=== PATIENT | female | born 1950 | race Caucasian/White ===

== ENCOUNTER 2016-09-16 08:43 | Emergency (ER) | payer OTHER ==
[~2016-09-16] VITALS: Wt 81.0 kg
[~2016-09-16 08:43] MED LIST: BUPR-34 PO; DEXT5TAB17 PO; DULO30CA45; LAMO100T83 PO; ONDA4TAB35 PO; ZOLP5TAB PO
--- NOTE | 2016-09-16 10:04 | ERD ---
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 This occurred this morning, she states that she was sleepy this morning and actually turned on her right hand was in it, states that she has lacerations on her second and third digit over the nail area. She denies weakness, paresthesias. Her last tetanus shot was 2 years ago. ROS All systems reviewed and are negative except as per history of present illness. Medications Home Meds Active Scripts Ondansetron Hcl* (Zofran* ODT) 4 mg -ODT Tab.disper, 4 MG PO Q6 Y for NAUSEA AND /OR VOMITING, #10 TAB Prov:RYAN TRACY MD 04/08/15 Reported Medications Amphet Uwj-Ggxmny-U-Amphet (Adderall) 5 Mg Tablet, PO DAILY, TAB 04/08/15 Lamotrigine* (Lamictal*) 100 Mg Tablet, 100 MG PO DAILY, TAB 04/08/15 Zolpidem Tartrate* (Ambien*) 5 Mg Tablet, 5 MG PO HS Y for INSOMNIA, TAB 04/08/15 Bupropion Hcl* (Wellbutrin SR*) 150 Mg Tablet.sa, 150 MG PO DAILY, TAB.SA 04/08/15 Duloxetine Hcl* (Cymbalta*) 30 Mg Capsule.dr, 60 MG DAILY 02/27/11 Allergies Allergies: Coded Allergies: aspirin (Verified Allergy, Unknown, 04/08/15) oxycodone (Verified Allergy, Unknown, 04/08/15) prochlorperazine (Verified Allergy, Unknown, 04/08/15) PMhx/Soc History of Surgery: Yes (TONSILS, L KNEE, APENDECTOMY) Anesthesia Reaction: No Hx Neurological Disorder: No Hx Respiratory Disorders: No Hx Cardiac Disorders: No Hx Psychiatric Problems: Yes Hx Miscellaneous Medical Probl: Yes (colitis ) Hx Alcohol Use: Yes Hx Substance Use: No Hx Tobacco Use: No Physical Exam Vitals Vital Signs Date Time Temp Pulse Resp B/P Pulse Ox O2 Delivery O2 Flow Rate FiO2 09/16/16 08:46 98.0 78 18 117/87 99 Physical Exam General: Well-developed, well-nourished. The patient appears in no acute distress. HEENT: Head is normocephalic, atraumatic. No scleral icterus. Neck: Supple. Nontender. Lungs: Clear to auscultation. Normal air movement. Heart: Regular rate and rhythm. S1 and S2 are normal. No murmurs, gallops, or rubs. Abdomen: Nondistended. Extremities: Full range of motion at DIP, PIP and MCP joints of the right second and third digits. Capillary refill less than 2 seconds. Neurologic: Alert and oriented 3. No focal deficits. Normal speech and gait. Skin: Superficial lacerations at the nailbed, dorsal aspect just above the nailbed on second and third digit have small lacerations all approximately 1 cm. There is no active bleeding. Results 24 hrs PROCEDURE: XR Hand. CLINICAL INDICATION: Right hand pain following injury. TECHNIQUE: Three views of the right hand were obtained. COMPARISON: No prior studies are available for comparison. FINDINGS: The osseous structures demonstrate normal alignment and mineralization. No acute fracture or dislocation is seen. The joint spaces are well preserved. No significant soft tissue abnormalities are appreciated. IMPRESSION: 1. Unremarkable right hand x-ray series. 2. No acute fracture or dislocation is seen. RPTAT: HH .Margo Walton MD, MD Date Time Electronically viewed and signed by .Margo Walton MD, MD on 09/16/2016 11 :27 Procedures/MDM ED course: Patient had wound care done, laceration was irrigated copiously with normal saline, and clean dressing was applied. MDM: 62-year-old female comes in with superficial lacerations at the nail and finger on the right second and third digits. X-rays of the hand are unremarkable. This is a superficial injury, no underlying fracture, tendon injury. Departure Diagnosis: Primary Impression: Laceration Condition: ALICE Lr PA-C Sep 16, 2016 10:04
--- NOTE | 2016-09-16 11:27 | RADRPT ---
PROCEDURE: XR Hand. CLINICAL INDICATION: Right hand pain following injury. TECHNIQUE: Three views of the right hand were obtained. COMPARISON: No prior studies are available for comparison. FINDINGS: The osseous structures demonstrate normal alignment and mineralization. No acute fracture or disloc ation is seen. The joint spaces are well preserved. No significant soft tissue abnormalities are a ppreciated. IMPRESSION: 1. Unremarkable right hand x-ray series. 2. No acute fracture or dislocation is seen. RPTAT: HH .Margo Walton MD, MD Date Time Electronically viewed and signed by .Margo Walton MD, on 09/16/2016 11:27 .G/
== END 2016-09-16 11:38 | disposition home or self-care (01) ==
LOC: FTE 08:43
DX: S61.210A Laceration without foreign body of right index finger without damage to nail, initial encounter (principal); S61.212A Laceration without foreign body of right middle finger without damage to nail, initial encounter; Y28.8XXA Contact with other sharp object, undetermined intent, initial encounter; Y92.9 Unspecified place or not applicable

== ENCOUNTER 2016-11-29 05:53 | Inpatient (IN) | payer OTHER ==
--- NOTE | 2016-11-23 10:04 | PREOPHP ---
DATE OF ADMISSION: 11/29/2016 Thank you very much for allowing me to evaluate the above patient, a 66-year-old female who is to [facility] on 11/29/2016. HISTORICAL EVENTS: As you well know, this patient has had progressive pain involving her right ankl e related to recurrent injuries. Because of the latter, she has elected to proceed with your recomm ended surgical intervention. Today, she denies cough, wheezing, shortness of breath, substernal florina st pain, radiating neck, arm or jaw discomfort. She denies nausea, vomiting, abdominal pain, unusua l constipation or diarrhea and denies symptoms of gastrointestinal bleeding with review of system s being unrevealing. MEDICATIONS: Include: 1. Cymbalta 60 mg b.i.d. 2. Wellbutrin 300 mg per day. 3. Lamictal 200 mg daily. 4. Vitamin D3 1000 units per day. PAST MEDICAL HISTORY: 1. History of kidney stones, remote. 2. Appendectomy 3. Tonsillectomy. 4. Left knee replacement in 2015. 5. History of collagenous colitis, having been on budesonide in the past, now quiescent. 6. Embraces a vegan diet. 7. No history of hypertension, diabetes, strokes, phlebitis or peptic ulcer disease. FAMILY HISTORY: Positive for stroke and diabetes. SOCIAL HISTORY: She is single. She has no children. Socially drinks alcohol. 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 PHYSICAL EXAMINATION: GENERAL: [place] female in no acute distress. VITAL SIGNS: BP 122/72, respirations were 18. She was afebrile. EYES: Extraocular muscles were full. NOSE, MOUTH, AND THROAT: Normal. NECK: Supple. There was no jugular venous distention, thyroid enlargement or adenopathy. Carotids 2+, no bruits. LUNGS: Clear. HEART: Rhythm regular. ABDOMEN: Nontender. Liver and spleen were not palpable. No masses or tenderness were noted. EXTREMITIES: No edema. Calves nontender. Pulses 2+. NEUROLOGIC: No lateralizing motor weakness. IMPRESSION: Pending labs, I perceive no problems with your planned surgical intervention. Dictated By: TANK OH/DIPIKA Conf#: [id number] DID#: [id number]
[~2016-11-29] VITALS: Ht 160 cm; Wt 83.3 kg
[2016-11-29] VITALS (33 sets, daily range): BP systolic 96–148; BP diastolic 58–89; PULSE 70–100; RESP 15–25; Ht 160 cm; Wt 83.3 kg
--- NOTE | 2016-11-29 06:46 | HPN ---
Date/Time of Note Date/Time of Note DATE: 11/29/16 TIME: 06:46 Interval H&P Admission Note Pt. seen H&P reviewed: No system changes MICHELLE MARTIN MD Nov 29, 2016 06:46
[2016-11-29] MEDS ORDERED: PROPOFOL 200 MG INJ ONE (07:00)
[2016-11-29] MEDS ORDERED: ROCURONIUM 50 MG INJ ONE (07:00)
[2016-11-29] MEDS ORDERED: NEOSTIGMINE 3 MG/3 ML SYRINGE ONE (07:00)
[2016-11-29] MEDS ORDERED: CEFAZOLIN 1 GM INJ IV SCH (07:00)
[2016-11-29] MEDS ORDERED: morphine 10 MG INJ IV PRN (07:00)
[2016-11-29] MEDS ORDERED: CEFAZOLIN 1 GM INJ ONE (07:00)
[2016-11-29] MEDS ORDERED: OXYCODONE/ACETAMINOPHEN (5/325) TAB PO PRN (07:00)
[2016-11-29] MEDS ORDERED: LIDOCAINE 2% (SDV) 5 ML INJ ONE (07:00)
[2016-11-29] MEDS ORDERED: GLYCOPYRROLATE 0.4 MG INJ ONE (07:00)
[2016-11-29] MEDS ORDERED: HYDROmorphONE 0.2 MG/ML PCA IV SCH (07:00)
[2016-11-29] MEDS ORDERED: SUCCINYLCHOLINE CHLORIDE 100 MG/5 ML SYG IV ONE (07:00)
[2016-11-29] MEDS ORDERED: MIDAZOLAM 1 MG/ML 2 ML INJ ONE (07:03)
[2016-11-29] MEDS ORDERED: ROPIVACAINE 0.5 % 30 ML VIAL ONE (07:03)
[2016-11-29] MEDS ORDERED: POLYMYXIN/BACITRACIN 1L IRRIG ONE (07:24)
[2016-11-29] MEDS ORDERED: FENTAnyl 50 MCG/ML VIAL ONE (07:26)
[2016-11-29] MEDS ORDERED: DIPHENHYDRAMINE 50 MG INJ IV PRN (08:30)
[2016-11-29] MEDS ORDERED: HYDROmorphONE (0.2 MG/ML) 10ML SYG IV PRN ×3 (08:30)
[2016-11-29] MEDS ORDERED: MEPERIDINE 25 MG INJ IV PRN (08:30)
[2016-11-29] MEDS ORDERED: FENTAnyl 50 MCG/ML VIAL IV PRN ×2 (08:30)
[2016-11-29] MEDS ORDERED: ONDANSETRON 4 MG INJ IV PRN (08:30)
[2016-11-29] MEDS ORDERED: hydrALAzine 20 MG INJ ONE (10:28)
[2016-11-29] MEDS ORDERED: BACITRACIN/POLYMYXIN 28.35 GM OINT TOP ONE (11:31)
[2016-11-29] MEDS ORDERED: HYDROmorphONE 0.2 MG/ML PCA ONE (12:17)
[2016-11-29] MEDS: HYDROmorphONE 0.2 MG/ML PCA IV SCH ×2 (12:26→20:34)
--- NOTE | 2016-11-29 13:57 | OPR ---
Date/Time of Note Date/Time of Note DATE: 11/29/16 TIME: 13:55 Operative Report Preoperative Diagnosis Right ankle arthritis Postoperative Diagnosis Right ankle arthritis Operation/Procedure Performed Right Ankle Arthroplasty Surgeon: MICHELLE MARTIN MD insurance claims assistant: HEIDI MELENDEZ Anesthesia: general, other (Popliteal) Estimated Blood Loss: 10 - 50 ml's Grafts/Implants Prakash medial Infinity Total Ankle Replacement Size 2 Tibia Size 1 Talus Size 8 mm Poly Complications: None MICHELLE MARTIN MD Nov 29, 2016 13:56
[2016-11-29] MEDS: CEFAZOLIN 1 GM/50 ML (PMX) 50 ML IVPB SCH ×2 (14:35→21:54)
--- NOTE | 2016-11-29 14:43 | RADRPT ---
PROCEDURE: Intraoperative fluoroscopy CLINICAL INDICATION: Right ankle arthroplasty TECHNIQUE: 179 seconds of fluoroscopy time was utilized. 20 Images are submitted for interpretatio n. COMPARISON: Plain films from the same day FINDINGS: Successful placement of a right ankle arthroplasty was performed. 179 seconds of fluoroscopy time u tilized. Anatomic alignment. IMPRESSION: Successful right ankle arthroplasty placement. 179 seconds of fluoroscopy time used. Anatomic alig nment. RPTAT: EE .Danielle Chaves MD, MD Date Time Electronically viewed and signed by .Danielle Chaves MD, on 11/29/2016 14:43 .F/
--- NOTE | 2016-11-29 15:48 | RADRPT ---
PROCEDURE: XR Ankle. CLINICAL INDICATION: Right ankle postoperative evaluation TECHNIQUE: 3 views of the right ankle were performed. COMPARISON: None. FINDINGS: Overlying cast obscures fine bony detail. There is a tibiotalar arthroplasty in anatomic alignment. Lucencies in the distal tibial metaphysis likely from previous hardware. Remaining joint spaces are grossly preserved. There is diffuse soft tissue swelling. IMPRESSION: 1. Tibiotalar arthroplasty in anatomic alignment. 2. Diffuse soft tissue swelling. RPTAT: UU .Sheldon Rose MD, MD Date Time Electronically viewed and signed by .Sheldon Rose MD, MD on 11/29/2016 15:48 .K/
--- NOTE | 2016-11-29 16:17 | CONS ---
DATE OF ADMISSION: 11/29/2016 DATE OF CONSULTATION: 11/29/2016 TYPE OF CONSULTATION: Medical. Thank you, Dr. Parks, for asking me to participate in the medical management of this patient. REASON FOR CONSULTATION: To manage the patient's depression, collagenous colitis. HISTORY OF PRESENT ILLNESS: This 66-year-old female is now in the postanesthesia recovery room afte r undergoing a right total ankle replacement by Dr. Gorge Parks. The patient is lethargic but arous es easily to verbal stimuli and answers questions appropriately. The patient denies any chest pain or shortness of breath. The patient is receiving a BENZENE OPERATOR medication for pain. PAST MEDICAL HISTORY: Remarkable for kidney stones, collagenous colitis which has been quiescent, d epression for which she takes medication. PAST SURGICAL HISTORY: Appendectomy, tonsillectomy, left knee replacement in 2016. CURRENT MEDICATIONS: Include the following 1. Cymbalta 60 mg twice a day. 2. Wellbutrin 300 mg a day. 3. Lamictal 200 mg at night. 4. Vitamin D3 1000 units a day. FAMILY HISTORY: Positive for stroke and diabetes. SOCIAL HISTORY: The patient is single. She has no children and socially drinks alcohol. 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 PHYSICAL EXAMINATION: GENERAL: At this time reveals a well-developed female in no apparent distress. VITAL SIGNS: Pulse of 92, blood pressure 121/66, O2 saturation 99% on 2 liter nasal cannula. HEENT: HEAD: Normocephalic. EYES: Extraocular muscles intact. NOSE AND MOUTH: Normal. NECK: Supple. No neck vein distention. LUNGS: Clear to auscultation. HEART: Regular rhythm. No murmurs, gallops, or rubs. ABDOMEN: Soft, nontender. EXTREMITIES: No peripheral edema. IMPRESSION: This patient is now in the recovery room after undergoing a right total ankle replaceme nt. She is doing well. Her vital signs are stable. I will manage the patient's depression and col lagenous colitis. PLAN 1. Resume routine medications. 2. Check labs in the morning. 3. Postop ankle replacement protocol. 4. I will follow the patient along with you medically. Dictated By: LIZA LORENZO MD, ND/DIPIKA Conf#: [id number] [facility]#: [id number]
[2016-11-29] MEDS: LAMOTRIGINE 100 MG TAB PO SCH (21:54)
[2016-11-30 00:35] VITALS: BP 111/63; PULSE 92; RESP 19
[2016-11-30] MEDS ORDERED: VITAMIN A & D 5 GM OINT PACKET TOP ONE (03:02)
[2016-11-30] MEDS: HYDROmorphONE 0.2 MG/ML PCA IV SCH (03:28)
[2016-11-30 04:38] VITALS: BP 109/67; PULSE 93; RESP 18
[2016-11-30 06:04] LABS: ABNORMAL IP MESSAGE 1; ADD SCAN DIFF NO; BASOPHILS % 0.5 % (0.0-2.0); EOSINOPHILS # 0.1 10^3/ul (0.0-0.5); EOSINOPHILS % 1.7 % (0.0-7.0); HEMOGLOBIN 12.7 g/dl (12.0-16.0); LYMPHOCYTES # 1.3 10^3/ul (0.8-2.9); LYMPHOCYTES % 16.9 % (15.0-51.0); MEAN CORPUSCULAR HEMOGLOBIN 31.8 pg (29.0-33.0); MEAN CORPUSCULAR HGB CONC 31.8 g/dl (32.0-37.0); MEAN CORPUSCULAR VOLUME 100.3 fl (82.0-101.0); MONOCYTE # 1.2 10^3/ul (0.3-0.9); NEUTROPHILS % 64.4 % (39.0-77.0); PLATELET COUNT 86 10^3/UL (140-415); RED BLOOD COUNT 3.99 10^6/ul (4.20-5.40); RED CELL DISTRIBUTION WIDTH 13.1 % (11.5-14.5); WHITE BLOOD COUNT 7.8 10^3/ul (4.8-10.8)
[2016-11-30 06:27] LABS: ALBUMIN 4.3 g/dl (3.3-4.9); ALBUMIN/GLOBULIN RATIO 2.26; BILIRUBIN,INDIRECT 0.9 mg/dl (0-1.1); BILIRUBIN,TOTAL 0.9 mg/dl (0.2-1.3); CALCIUM 9.2 mg/dl (8.4-10.2); CREATININE 0.73 mg/dl (0.44-1.00); POTASSIUM 3.8 mmol/L (3.5-5.1); TOTAL PROTEIN 6.2 g/dl (6.1-8.1)
[2016-11-30] MEDS: CEFAZOLIN 1 GM/50 ML (PMX) 50 ML IVPB SCH ×3 (06:28→21:35)
--- NOTE | 2016-11-30 06:54 | PN ---
Date/Time of Note Date/Time of Note DATE: 11/30/16 TIME: 06:52 Assessment/Plan Lines/Catheters IV Catheter Type (from Nrsg): Peripheral IV Parker in Place (from Nrsg): No Assessment/Plan Assessment/Plan POD1 s/p Right Total Ankle Arthroplasty - NWB to the RLE, PT to GT - Reg Diet - Appreciate Medicine co follow - DC WIRE COATING OPERATOR METAL, Advance to PO and IV pain meds + Neurontin for multimodal pain mgmt - likely dc home today or tomorrow if cleared for safety with PT - SCDs, teds, ASA [address] MD Charly SCOI Subjective 24 Hr Interval Summary Doing well. Pain is controlled with Dilaudid WIRE COATING OPERATOR METAL. Complaining of itchiness and nausea post op No f/c/ Feeding: advancing diet Pain Control: mild Exam/Review of Systems Vital Signs Vitals Vital Signs Date Time Temp Pulse Resp B/P Pulse Ox O2 Delivery O2 Flow Rate FiO2 11/30/16 19:21 98.5 87 20 173/96 95 11/30/16 08:00 Nasal Cannula 2.0 Intake and Output 11/29/16 11/29/16 11/30/16 15:00 23:00 07:00 Intake Total 1950 ml 50 ml 300 ml Output Total 350 ml 350 ml Balance 1600 ml 50 ml -50 ml Exam Constitutional: alert, oriented, well developed Musculoskeletal: other (RLE/ Splint intact. toes wiggle, silt to the exposed toes dorsally and plantarlly. CR brisk, toes wwp) Results Result Diagram: 11/30/16 0430 11/30/16 0430 MICHELLE MARTIN MD Nov 30, 2016 06:54 MICHELLE MARTIN MD Nov 30, 2016 06:54
[2016-11-30] MEDS ORDERED: HYDROmorphONE 1 MG/ML SYG IV PRN (07:00)
[2016-11-30] MEDS: oxyCODONE 5 MG TAB PO SCH ×5 (07:00→23:00)
--- NOTE | 2016-11-30 07:29 | CONS ---
Date/Time of Note Date/Time of Note DATE: 11/30/16 TIME: 07:27 Assessment/Plan Assessment/Plan Additional Assessment/Plan 1. Stable post op right ankle surgery 2. Psyhiatric disorder, meds rev 3. Labs reviewed Consultation Date/Type/Reason Admit Date/Time Nov 29, 2016 at 05:53 Initial Consult Date Detailed Summary Respiratory: No cough, No shortness of breath Cardiovascular: No chest pain Gastrointestinal: no complaints Genitourinary: no complaints Musculoskeletal: bone/joint pain (mild right ankle pain) Exam/Review of Systems Vital Signs Vitals Vital Signs Date Time Temp Pulse Resp B/P Pulse Ox O2 Delivery O2 Flow Rate FiO2 11/30/16 04:41 19 11/30/16 04:38 98.4 93 109/67 95 Nasal Cannula 11/29/16 22:00 2.0 Intake and Output 11/29/16 11/29/16 11/30/16 15:00 23:00 07:00 Intake Total 1950 ml 50 ml 300 ml Output Total 350 ml 350 ml Balance 1600 ml 50 ml -50 ml Exam Neck: No jvd Respiratory: clear to auscultation Cardiovascular: regular rate and rhythm Gastrointestinal: soft Extremities: No edema (left calf and no calf tend, cast on right) Results Result Diagram: 11/30/16 0430 11/30/16 0430 Results 24 hrs Laboratory Tests Test 11/30/16 04:30 White Blood Count 7.8 # Red Blood Count 3.99 #L Hemoglobin 12.7 # Hematocrit 40.0 Mean Corpuscular Volume 100.3 Mean Corpuscular Hemoglobin 31.8 Mean Corpuscular Hemoglobin Concent 31.8 L Red Cell Distribution Width 13.1 Platelet Count 86 L Mean Platelet Volume 11.0 #H Neutrophils % 64.4 Lymphocytes % 16.9 Monocytes % 16.0 H Eosinophils % 1.7 Basophils % 0.5 Nucleated Red Blood Cells % 0.0 Neutrophils # 5.0 Lymphocytes # 1.3 Monocytes # 1.2 H Eosinophils # 0.1 Basophils # 0.0 Nucleated Red Blood Cells # 0.0 Sodium Level 134 L Potassium Level 3.8 Chloride Level 100 Carbon Dioxide Level 27 Anion Gap 11 Blood Urea Nitrogen 16 Creatinine 0.73 Glucose Level 96 Calcium Level 9.2 Total Bilirubin 0.9 Direct Bilirubin 0.00 Indirect Bilirubin 0.9 Aspartate Amino Transf (AST/SGOT) 33 Alanine Aminotransferase (ALT/SGPT) 32 Alkaline Phosphatase 74 Total Protein 6.2 Albumin 4.3 Globulin 1.90 Albumin/Globulin Ratio 2.26 Medications Medications Current Medications Ondansetron HCl (Zofran Inj) 4 mg Q4H PRN IV NAUSEA AND/OR VOMITING; Start at 07:00 Diphenhydramine HCl 25 mg 25 mg Q4H PRN PO ITCHING; Start 11/29/16 at 07:00 Cefazolin Sodium (Ancef 1 Gm/50 ml (Pmx)) 50 ml @ 100 mls/hr Q8 IVPB Last administered on 11/30/16 06:28; Admin Dose 100 MLS/HR; Start 11/29/16 at 14:00 ; Stop 12/01/16 at 06:29 Hydromorphone HCl (Dilaudid DESKTOP SUPPORT ASSOCIATE) MG/HR CONTINUOUS RATE ... Q4PCA IV Last administered on 11/30/16 03:28; Admin Dose 6 MG; Start 11/29/16 at 12:00; Stop 11/30/16 at 08:00 Bupropion HCl (Wellbutrin Sr) 150 mg DAILY PO ; Start 11/30/16 at 09:00 Duloxetine HCl (Cymbalta) 60 mg DAILY PO ; Start 11/30/16 at 09:00 Lamotrigine (Lamictal) 100 mg DAILY PO Last administered on 11/29/16 21:54; Admin Dose 100 MG; Start 11/29/16 at 16:00 Gabapentin (Neurontin) 100 mg TID PO ; Start 11/30/16 at 09:00 Oxycodone HCl (Roxicodone) 10 mg Q4H PO ; Start 11/30/16 at 07:00 Hydromorphone HCl (Dilaudid) 0.5 mg Q3 PRN IV SEVERE PAIN LEVEL 7-10; Start at 07:[address] MD Nov 30, 2016 07:29
[2016-11-30 08:14] VITALS: BP 113/67; RESP 16
[2016-11-30] MEDS: LAMOTRIGINE 100 MG TAB PO SCH ×2 (09:00→10:26)
[2016-11-30] MEDS: DULOXETINE 30 MG CAP DR PO SCH (10:26)
[2016-11-30] MEDS: BUPROPION (SR) 150 MG TAB PO SCH (10:26)
[2016-11-30] MEDS: GABAPENTIN 100 MG CAP PO SCH ×3 (10:27→21:00)
[2016-11-30] MEDS: DIPHENHYDRAMINE 25 MG CAP PO PRN (10:30)
--- NOTE | 2016-11-30 12:31 | CONS ---
Date/Time of Note Date/Time of Note DATE: 11/30/16 TIME: 12:28 Consultation Date/Type/Reason Admit Date/Time Nov 29, 2016 at 05:53 Initial Consult Date 11/30/16 Type of Consultation: Anesthesiology Reason for Consultation Follow up 24 HR Interval Summary Free Text/Dictation Pt seen and examined at bedside is POD#1 for Right ankle arthroplasty. Pt received a right sciatic nerve block with ultrasound guidance preop for post op pain control. Pt states her pain was minimal after surgery until later that night when it increased. 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 No N/V/D. Will follow. Constitutional: improved Exam/Review of Systems Vital Signs Vitals Vital Signs Date Time Temp Pulse Resp B/P Pulse Ox O2 Delivery O2 Flow Rate FiO2 11/30/16 08:14 98.8 81 16 113/67 99 11/30/16 04:38 Nasal Cannula 11/29/16 22:00 2.0 Intake and Output 11/29/16 11/29/16 11/30/16 15:00 23:00 07:00 Intake Total 1950 ml 50 ml 300 ml Output Total 350 ml 350 ml Balance 1600 ml 50 ml -50 ml Results Result Diagram: 11/30/16 0430 11/30/16 0430 Results 24 hrs Laboratory Tests Test 11/30/16 04:30 White Blood Count 7.8 # Red Blood Count 3.99 #L Hemoglobin 12.7 # Hematocrit 40.0 Mean Corpuscular Volume 100.3 Mean Corpuscular Hemoglobin 31.8 Mean Corpuscular Hemoglobin Concent 31.8 L Red Cell Distribution Width 13.1 Platelet Count 86 L Mean Platelet Volume 11.0 #H Neutrophils % 64.4 Lymphocytes % 16.9 Monocytes % 16.0 H Eosinophils % 1.7 Basophils % 0.5 Nucleated Red Blood Cells % 0.0 Neutrophils # 5.0 Lymphocytes # 1.3 Monocytes # 1.2 H Eosinophils # 0.1 Basophils # 0.0 Nucleated Red Blood Cells # 0.0 Sodium Level 134 L Potassium Level 3.8 Chloride Level 100 Carbon Dioxide Level 27 Anion Gap 11 Blood Urea Nitrogen 16 Creatinine 0.73 Glucose Level 96 Calcium Level 9.2 Total Bilirubin 0.9 Direct Bilirubin 0.00 Indirect Bilirubin 0.9 Aspartate Amino Transf (AST/SGOT) 33 Alanine Aminotransferase (ALT/SGPT) 32 Alkaline Phosphatase 74 Total Protein 6.2 Albumin 4.3 Globulin 1.90 Albumin/Globulin Ratio 2.26 Medications Medications Current Medications Ondansetron HCl (Zofran Inj) 4 mg Q4H PRN IV NAUSEA AND/OR VOMITING; Start at 07:00 Diphenhydramine HCl 25 mg 25 mg Q4H PRN PO ITCHING Last administered on 10:30; Admin Dose 25 MG; Start 11/29/16 at 07:00 Cefazolin Sodium (Ancef 1 Gm/50 ml (Pmx)) 50 ml @ 100 mls/hr Q8 IVPB Last administered on 11/30/16 06:28; Admin Dose 100 MLS/HR; Start 11/29/16 at 14:00 ; Stop 12/01/16 at 06:29 Bupropion HCl (Wellbutrin Sr) 150 mg DAILY PO Last administered on 11/30/16 10 :26; Admin Dose 150 MG; Start 11/30/16 at 09:00 Duloxetine HCl (Cymbalta) 60 mg DAILY PO Last administered on 11/30/16 10:26; Admin Dose 60 MG; Start 11/30/16 at 09:00 Lamotrigine (Lamictal) 100 mg DAILY PO Last administered on 11/29/16 21:54; Admin Dose 100 MG; Start 11/29/16 at 16:00 Gabapentin (Neurontin) 100 mg TID PO Last administered on 11/30/16 10:27; Admin Dose 100 MG; Start 11/30/16 at 09:00 Oxycodone HCl (Roxicodone) 10 mg Q4H PO Last administered on 11/30/16 12:24; Admin Dose 10 MG; Start 11/30/16 at 07:00 Hydromorphone HCl (Dilaudid) 0.5 mg Q3 PRN IV SEVERE PAIN LEVEL 7-10; Start at 07:00 GARRICK REYNOSO Nov 30, 2016 12:31
[2016-11-30] MEDS: ACETAMINOPHEN 325 MG TAB PO PRN (17:09)
[2016-11-30] MEDS: RIVAROXABAN 10 MG TABLET PO SCH (18:21)
[2016-11-30] MEDS: ONDANSETRON 4 MG INJ IV PRN ×2 (18:21→19:29)
[2016-11-30 19:21] VITALS: BP 173/96; RESP 20
[2016-11-30] MEDS ORDERED: MINERAL OIL 30ML CUP PO ONE (20:00)
[2016-11-30] MEDS: SENNA/DOCUSATE NA (8.6MG/50MG) TAB PO SCH (20:00)
[2016-11-30] MEDS ORDERED: ERGOCALCIFEROL 50,000 UNIT CAP PO ONE (21:00)
[2016-12-01] MEDS: ACETAMINOPHEN 325 MG TAB PO PRN (02:57)
[2016-12-01] MEDS: oxyCODONE 5 MG TAB PO SCH ×6 (03:00→23:00)
[2016-12-01] MEDS: CEFAZOLIN 1 GM/50 ML (PMX) 50 ML IVPB SCH (05:46)
[2016-12-01] MEDS: ONDANSETRON 4 MG INJ IV PRN (06:21)
--- NOTE | 2016-12-01 08:13 | CONS ---
Date/Time of Note Date/Time of Note DATE: 12/01/16 TIME: 08:10 Assessment/Plan Assessment/Plan Additional Assessment/Plan 1. Stable post op right ankle surg. 2. Nausea is mod, pain meds adjusted, labs ordered 3. Constipation, ducalox supp to be given Consultation Date/Type/Reason Admit Date/Time Nov 29, 2016 at 05:53 Type of Consultation: Anesthesiology Detailed Summary Respiratory: No cough, No shortness of breath Cardiovascular: No chest pain Gastrointestinal: nausea, other (constipated), No pain Genitourinary: no complaints Exam/Review of Systems Vital Signs Vitals Vital Signs Date Time Temp Pulse Resp B/P Pulse Ox O2 Delivery O2 Flow Rate FiO2 11/30/16 20:10 Nasal Cannula 2.0 11/30/16 19:21 98.5 87 20 173/96 95 Intake and Output 11/30/16 11/30/16 12/01/16 14:59 22:59 06:59 Intake Total 100 ml 50 ml Output Total 750 ml Balance 100 ml -700 ml Exam Neck: No jvd Respiratory: clear to auscultation Cardiovascular: regular rate and rhythm Gastrointestinal: soft Extremities: No edema (left lower extrem, right lower extrem in cast) Results Result Diagram: 11/30/16 0430 11/30/16 0430 Medications Medications Current Medications Ondansetron HCl (Zofran Inj) 4 mg Q4H PRN IV NAUSEA AND/OR VOMITING Last administered on 12/01/16 06:21; Admin Dose 4 MG; Start 11/29/16 at 07:00 Diphenhydramine HCl (Benadryl) 25 mg Q4H PRN PO ITCHING Last administered on 10:30; Admin Dose 25 MG; Start 11/29/16 at 07:00 Bupropion HCl (Wellbutrin Sr) 150 mg DAILY PO Last administered on 11/30/16 10 :26; Admin Dose 150 MG; Start 11/30/16 at 09:00 Duloxetine HCl (Cymbalta) 60 mg DAILY PO Last administered on 11/30/16 10:26; Admin Dose 60 MG; Start 11/30/16 at 09:00 Lamotrigine (Lamictal) 100 mg DAILY PO Last administered on 11/29/16 21:54; Admin Dose 100 MG; Start 11/29/16 at 16:00 Gabapentin (Neurontin) 100 mg TID PO Last administered on 11/30/16 16:26; Admin Dose 100 MG; Start 11/30/16 at 09:00 Hydromorphone HCl (Dilaudid) 0.5 mg Q3 PRN IV SEVERE PAIN LEVEL 7-10; Start at 07:00 Acetaminophen (Tylenol Tab) 650 mg Q6H PRN PO PAIN AND OR ELEVATED TEMP Last administered on 12/01/16 02:57; Admin Dose 650 MG; Start 11/30/16 at 17:00 Oxycodone HCl (Roxicodone) 5 mg Q4H PO Last administered on 12/01/16 06:21; Admin Dose 5 MG; Start 11/30/16 at 23:00 Ascorbic Acid (Vitamin C) 1,000 mg DAILY GTB ; Start 12/01/16 at 09:00 Senna/Docusate Sodium (Senokot-S) 2 tab DAILY PO ; Start 11/30/16 at 20:00 Bisacodyl (Dulcolax Supp) 10 mg DAILY PRN LA CONSTIPATION; Start 12/01/16 at 08 :30; Status TANK BELTRÁN MD Dec 01, 2016 08:13
[2016-12-01 08:16] VITALS: BP 168/101; RESP 16
[2016-12-01 08:28] VITALS: BP 165/86; PULSE 79; RESP 18
[2016-12-01] MEDS ORDERED: BISACODYL 10 MG SUPP PR PRN (08:30)
[2016-12-01] MEDS: LAMOTRIGINE 100 MG TAB PO SCH (09:00)
[2016-12-01] MEDS: AMLODIPINE 2.5 MG TAB PO SCH ×2 (09:30→20:50)
[2016-12-01] MEDS: DULOXETINE 30 MG CAP DR PO SCH (10:08)
[2016-12-01] MEDS: BUPROPION (SR) 150 MG TAB PO SCH (10:08)
[2016-12-01] MEDS: ASCORBIC ACID 500 MG TAB GTB SCH (10:08)
[2016-12-01] MEDS: GABAPENTIN 100 MG CAP PO SCH ×3 (10:08→20:49)
[2016-12-01] MEDS: SENNA/DOCUSATE NA (8.6MG/50MG) TAB PO SCH (10:08)
[2016-12-01 10:33] LABS: ADD SCAN DIFF NO
[2016-12-01 10:39] LABS: BASOPHILS % 0.4 % (0.0-2.0); EOSINOPHILS # 0.2 10^3/ul (0.0-0.5); EOSINOPHILS % 1.9 % (0.0-7.0); HEMATOCRIT 42.8 % (37.0-47.0); HEMOGLOBIN 14.7 g/dl (12.0-16.0); LYMPHOCYTES # 1.4 10^3/ul (0.8-2.9); LYMPHOCYTES % 12.6 % (15.0-51.0); MEAN CORPUSCULAR HEMOGLOBIN 33.5 pg (29.0-33.0); MEAN CORPUSCULAR HGB CONC 34.3 g/dl (32.0-37.0); MEAN CORPUSCULAR VOLUME 97.5 fl (82.0-101.0); MEAN PLATELET VOLUME 9.4 fl (7.4-10.4); MONOCYTE # 0.9 10^3/ul (0.3-0.9); MONOCYTES % 7.8 % (0.0-11.0); NEUTROPHIL # 8.4 10^3/ul (1.6-7.5); NEUTROPHILS % 76.8 % (39.0-77.0); PLATELET COUNT 163 10^3/UL (140-415); RED BLOOD COUNT 4.39 10^6/ul (4.20-5.40); RED CELL DISTRIBUTION WIDTH 12.4 % (11.5-14.5); WHITE BLOOD COUNT 10.9 10^3/ul (4.8-10.8)
[2016-12-01 11:09] LABS: ALBUMIN 4.1 g/dl (3.3-4.9); ALBUMIN/GLOBULIN RATIO 1.95; BILIRUBIN,INDIRECT 0.8 mg/dl (0-1.1); BILIRUBIN,TOTAL 0.8 mg/dl (0.2-1.3); CALCIUM 9.6 mg/dl (8.4-10.2); CREATININE 0.39 mg/dl (0.44-1.00); MAGNESIUM 1.8 mg/dl (1.7-2.5); PHOSPHORUS 2.5 mg/dl (2.5-4.9); POTASSIUM 3.6 mmol/L (3.5-5.1); TOTAL PROTEIN 6.2 g/dl (6.1-8.1)
--- NOTE | 2016-12-01 16:56 | PN ---
Date/Time of Note Date/Time of Note DATE: 12/01/16 TIME: 16:51 Assessment/Plan Lines/Catheters IV Catheter Type (from Nrsg): Saline Lock Parker in Place (from Nrsg): No Assessment/Plan Assessment/Plan POD2 s/p Right Total Ankle Arthroplasty - NWB to the RLE, PT to GT - Reg Diet, Encourage PO + Add Boost Protein Vanilla Shakes - Appreciate Medicine co follow - PO and IV pain meds + Neurontin for multimodal pain mgmt - likely dcto SNF once available as she lives alone and doesnt feel safe to go home - SCDs, teds, ASA [address] Charly SCOI Subjective 24 Hr Interval Summary Doing much better today. Her nausea has resolved and pain is well controlled. She denies any f/c/n/v/sob/cp. She does state she feels weak at this time and hasn't had much appetite Constitutional: improved, poor po Pain Control: mild Exam/Review of Systems Vital Signs Vitals Vital Signs Date Time Temp Pulse Resp B/P Pulse Ox O2 Delivery O2 Flow Rate FiO2 12/01/16 08:28 79 18 165/86 Room Air 12/01/16 08:16 97.7 97 11/30/16 20:10 2.0 Intake and Output 11/30/16 11/30/16 12/01/16 15:00 23:00 07:00 Intake Total 100 ml 50 ml Output Total 750 ml Balance 100 ml -700 ml Exam Constitutional: alert, oriented, well developed Musculoskeletal: other (RLE/ Splint intact. toes wiggle, silt to the exposed toes dorsally and plantarlly. CR brisk, toes wwp) Results Result Diagram: 12/01/16 1013 12/01/16 1013 MICHELLE MARTIN MD Dec 01, 2016 16:56
[2016-12-01] MEDS ORDERED: MINERAL OIL 30ML CUP PO ONE (17:00)
[2016-12-01] MEDS: RIVAROXABAN 10 MG TABLET PO SCH (18:33)
--- NOTE | 2016-12-01 18:39 | OPR ---
DATE OF OPERATION: 12/01/2016 PREOPERATIVE DIAGNOSIS: Right ankle arthritis. POSTOPERATIVE DIAGNOSES: Right ankle arthritis. OPERATION PERFORMED: Right total ankle arthroplasty. SURGEON: Gorge Martin MD. ECHO VASCULAR TECHNOLOGIST: HEIDI MELENDEZ. ANESTHESIOLOGIST: Please see chart. ESTIMATED BLOOD LOSS: Minimal. TOURNIQUET TIME: 150 minutes at 250 mmHg. IMPLANTS: Right total ankle arthroplasty [employer] system with a size 2 tibia, 1 talus and 8 poly. INDICATIONS: The patient is a 66-year-old female who has had a longstanding history of ankle pain with recent x-rays showing significant ankle arthritis with proximal 9 degrees of varus deformity. Given her significant arthritis, there is interest in maintaining a somewhat active lifestyle. The patient is interested in pursuing an arthroplasty. The patient was cleared in the preoperative sett ing and indicated for surgery. RISK NOTE: The patient was explained the risks and benefits of surgery in the patient's flandreau lang uage not limited to infection, bleeding, loss of limb, loss of life, need for future surgery, risk o f injury to blood vessels, nerves, ligaments, tendons, risk of blood clot, risk of pulmonary embolis m risk of , loss of limb, loss of life, and need for future surgery. The patient acknowledges risks and signed the surgical consent form. DESCRIPTION OF PROCEDURE: Patient had the correct operative extremity marked in the preoperative ho lding area. When I met the patient, we marked the correct operative extremity and confirmed on both consent and with patient. The patient was then given preoperative popliteal block anesthesia and t hen brought back in the operative theater, placed supine on operative table, given preoperative anti biotics approximately 30 minutes before surgery. The patient was then prepped and draped in normal sterile fashion. Time out was taken. All parties in the room agreed it was correct the patient, ext remity and procedure. Tourniquet was brought up to 250 mmHg and incision was made in a typical anterior approach between t he tibialis anterior and extensor hallucis longus with care to avoid injury to neurovascular structu res by protecting throughout the case. Incision was brought down to the anterior aspect of the tibi a and talus. Periosteum was debrided thoroughly to allow for the [employer] mold flush again st the tibia. Once the proper alignment was found with the alignment greer, initial pins were then pl aced and the tibial cutting system was used followed by a thorough cutting and followed by implant o f the arthroplasty. The patient was irrigated thoroughly with normal saline and closed in layers an d placed in a short leg splint that is well padded. All sponge and needle counts were correct. Dictated By: GORGE MARTIN MD EIF/NTS Conf#: [id number] DID#: [id number]
[2016-12-01 20:20] VITALS: BP 118/68; PULSE 83; RESP 18
[2016-12-01] MEDS: DIPHENHYDRAMINE 25 MG CAP PO PRN (20:49)
[2016-12-01] MEDS ORDERED: LAMOTRIGINE 100 MG TAB PO SCH (21:00)
[2016-12-02] MEDS: oxyCODONE 5 MG TAB PO SCH ×4 (03:00→15:00)
[2016-12-02] MEDS: ACETAMINOPHEN 325 MG TAB PO PRN (04:33)
[2016-12-02 05:48] LABS: ADD SCAN DIFF NO
[2016-12-02 06:08] LABS: ABNORMAL IP MESSAGE 1; BASOPHILS % 0.4 % (0.0-2.0); EOSINOPHILS # 0.7 10^3/ul (0.0-0.5); EOSINOPHILS % 8.4 % (0.0-7.0); HEMATOCRIT 39.8 % (37.0-47.0); HEMOGLOBIN 13.1 g/dl (12.0-16.0); LYMPHOCYTES # 1.5 10^3/ul (0.8-2.9); LYMPHOCYTES % 19.7 % (15.0-51.0); MEAN CORPUSCULAR HEMOGLOBIN 32.3 pg (29.0-33.0); MEAN CORPUSCULAR HGB CONC 32.9 g/dl (32.0-37.0); MEAN CORPUSCULAR VOLUME 98.3 fl (82.0-101.0); MEAN PLATELET VOLUME 10.5 fl (7.4-10.4); MONOCYTE # 0.8 10^3/ul (0.3-0.9); MONOCYTES % 10.3 % (0.0-11.0); NEUTROPHIL # 4.7 10^3/ul (1.6-7.5); NEUTROPHILS % 60.8 % (39.0-77.0); RED BLOOD COUNT 4.05 10^6/ul (4.20-5.40); RED CELL DISTRIBUTION WIDTH 12.6 % (11.5-14.5); WHITE BLOOD COUNT 7.7 10^3/ul (4.8-10.8)
[2016-12-02 06:17] LABS: CALCIUM 9.2 mg/dl (8.4-10.2); CREATININE 0.6 mg/dl (0.44-1.00); MAGNESIUM 1.9 mg/dl (1.7-2.5); PHOSPHORUS 2.9 mg/dl (2.5-4.9); POTASSIUM 3.4 mmol/L (3.5-5.1)
[2016-12-02 06:26] LABS: PLATELET COUNT 197 10^3/UL (140-415)
--- NOTE | 2016-12-02 07:51 | PN ---
Date/Time of Note Date/Time of Note DATE: 12/02/16 TIME: 07:51 Assessment/Plan Lines/Catheters IV Catheter Type (from Nrsg): Saline Lock Parker in Place (from Nrsg): No Assessment/Plan Assessment/Plan POD3 s/p Right Total Ankle Arthroplasty - NWB to the RLE, PT to GT - Reg Diet - Appreciate Medicine co follow - PO and IV pain meds + Neurontin for multimodal pain mgmt - likely dc to [facility] today - SCDs, teds, ASA [address] SCOI Subjective 24 Hr Interval Summary Feeling much better. Pain controlled Denies n/v/ Constitutional: no complaints Feeding: advancing diet Pain Control: well controlled Exam/Review of Systems Vital Signs Vitals Vital Signs Date Time Temp Pulse Resp B/P Pulse Ox O2 Delivery O2 Flow Rate FiO2 12/02/16 08:20 98.5 74 16 122/68 94 12/01/16 20:20 Room Air 11/30/16 20:10 2.0 Intake and Output 12/01/16 12/01/16 12/02/16 15:00 23:00 07:00 Intake Total 1310 ml 600 ml Output Total 950 ml 880 ml Balance 360 ml -280 ml Exam Constitutional: alert, oriented, well developed Neurological: other (RLE/ Splint intact. toes wiggle, silt to the exposed toes dorsally and plantarlly. CR brisk, toes wwp) Results Result Diagram: 12/02/16 0510 12/02/16 0510 MICHELLE MARTIN MD Dec 02, 2016 07:51
--- NOTE | 2016-12-02 07:58 | CONS ---
Date/Time of Note Date/Time of Note DATE: 12/02/16 TIME: 07:56 Assessment/Plan Assessment/Plan Additional Assessment/Plan 1. Doing well post op ankle surgery 2. Can dc if ok with ortho and PT Consultation Date/Type/Reason Admit Date/Time Nov 29, 2016 at 05:53 Type of Consultation: Anesthesiology Detailed Summary Respiratory: No cough, No shortness of breath Cardiovascular: No chest pain Gastrointestinal: other (mild constipation) Genitourinary: no complaints Musculoskeletal: bone/joint pain (mild ankle discomfort) Exam/Review of Systems Vital Signs Vitals Vital Signs Date Time Temp Pulse Resp B/P Pulse Ox O2 Delivery O2 Flow Rate FiO2 12/01/16 20:20 98.6 83 18 118/68 94 Room Air 11/30/16 20:10 2.0 Intake and Output 12/01/16 12/01/16 12/02/16 15:00 23:00 07:00 Intake Total 1310 ml 600 ml Output Total 950 ml 880 ml Balance 360 ml -280 ml Exam Neck: No jvd Respiratory: clear to auscultation Cardiovascular: regular rate and rhythm Gastrointestinal: soft Extremities: edema (left leg) Results Result Diagram: 12/02/16 0510 12/02/16 0510 Results 24 hrs Laboratory Tests Test 12/01/16 10:13 12/02/16 05:10 White Blood Count 10.9 #H 7.7 # Red Blood Count 4.39 4.05 L Hemoglobin 14.7 13.1 Hematocrit 42.8 39.8 Mean Corpuscular Volume 97.5 98.3 Mean Corpuscular Hemoglobin 33.5 H 32.3 Mean Corpuscular Hemoglobin Concent 34.3 32.9 Red Cell Distribution Width 12.4 12.6 Platelet Count 163 # 197 # Mean Platelet Volume 9.4 10.5 H Neutrophils % 76.8 60.8 Lymphocytes % 12.6 L 19.7 Monocytes % 7.8 10.3 Eosinophils % 1.9 8.4 H Basophils % 0.4 0.4 Nucleated Red Blood Cells % 0.0 0.0 Neutrophils # 8.4 H 4.7 Lymphocytes # 1.4 1.5 Monocytes # 0.9 0.8 Eosinophils # 0.2 0.7 H Basophils # 0.0 0.0 Nucleated Red Blood Cells # 0.0 0.0 Sodium Level 137 137 Potassium Level 3.6 3.4 L Chloride Level 99 100 Carbon Dioxide Level 27 32 H Anion Gap 15 8 Blood Urea Nitrogen 8 12 Creatinine 0.39 L 0.60 Glucose Level 105 102 Calcium Level 9.6 9.2 Phosphorus Level 2.5 2.9 Magnesium Level 1.8 1.9 Total Bilirubin 0.8 Direct Bilirubin 0.00 Indirect Bilirubin 0.8 Aspartate Amino Transf (AST/SGOT) 38 Alanine Aminotransferase (ALT/SGPT) 29 Alkaline Phosphatase 78 Total Protein 6.2 Albumin 4.1 Globulin 2.10 Albumin/Globulin Ratio 1.95 Medications Medications Current Medications Ondansetron HCl (Zofran Inj) 4 mg Q4H PRN IV NAUSEA AND/OR VOMITING Last administered on 12/01/16 06:21; Admin Dose 4 MG; Start 11/29/16 at 07:00 Diphenhydramine HCl (Benadryl) 25 mg Q4H PRN PO ITCHING Last administered on 20:49; Admin Dose 25 MG; Start 11/29/16 at 07:00 Bupropion HCl (Wellbutrin Sr) 150 mg DAILY PO Last administered on 12/01/16 10 :08; Admin Dose 150 MG; Start 11/30/16 at 09:00 Duloxetine HCl (Cymbalta) 60 mg DAILY PO Last administered on 12/01/16 10:08; Admin Dose 60 MG; Start 11/30/16 at 09:00 Gabapentin (Neurontin) 100 mg TID PO Last administered on 12/01/16 20:49; Admin Dose 100 MG; Start 11/30/16 at 09:00 Hydromorphone HCl (Dilaudid) 0.5 mg Q3 PRN IV SEVERE PAIN LEVEL 7-10; Start at 07:00 Acetaminophen (Tylenol Tab) 650 mg Q6H PRN PO PAIN AND OR ELEVATED TEMP Last administered on 12/02/16 04:33; Admin Dose 650 MG; Start 11/30/16 at 17:00 Oxycodone HCl (Roxicodone) 5 mg Q4H PO Last administered on 12/01/16 16:58; Admin Dose 5 MG; Start 11/30/16 at 23:00 Ascorbic Acid (Vitamin C) 1,000 mg DAILY GTB Last administered on 12/01/16 10: 08; Admin Dose 1,000 MG; Start 12/01/16 at 09:00 Senna/Docusate Sodium (Senokot-S) 2 tab DAILY PO Last administered on 10:08; Admin Dose 2 TAB; Start 11/30/16 at 20:00 Bisacodyl (Dulcolax Supp) 10 mg DAILY PRN ME CONSTIPATION; Start 12/01/16 at 08 :30 Amlodipine Besylate (Norvasc) 2.5 mg BID PO ; Start 12/01/16 at 09:30 Lamotrigine (Lamictal) 200 mg QHS PO Last administered on 12/01/16 20:49; Admin Dose 200 MG; Start 12/01/16 at 21:[address] MD Dec 02, 2016 07:58
[2016-12-02 08:20] VITALS: BP 122/68; RESP 16
[2016-12-02] MEDS: SENNA/DOCUSATE NA (8.6MG/50MG) TAB PO SCH (09:00)
[2016-12-02] MEDS: AMLODIPINE 2.5 MG TAB PO SCH (09:00)
[2016-12-02] MEDS ORDERED: POTASSIUM CHLORIDE (SR) 10 MEQ TAB PO SCH (09:00)
[2016-12-02] MEDS: DULOXETINE 30 MG CAP DR PO SCH (09:47)
[2016-12-02] MEDS: GABAPENTIN 100 MG CAP PO SCH ×2 (09:47→13:12)
[2016-12-02] MEDS: BUPROPION (SR) 150 MG TAB PO SCH (09:47)
[2016-12-02] MEDS: ASCORBIC ACID 500 MG TAB GTB SCH (09:48)
[2016-12-02] MEDS: DIPHENHYDRAMINE 25 MG CAP PO PRN ×2 (09:48→15:03)
--- NOTE | 2016-12-02 12:32 | PDOCDIS ---
Discharge Instructions DIAGNOSIS Discharge Diagnosis Right ankle arthritis CONDITION Patient Condition: Good HOME CARE INSTRUCTIONS: Diet Instructions: Special Diet: Vegan ACTIVITY: Activity Restrictions: Do not Drive Do not operate Machinery Do not operate Power Tool No Weight Bearing (TO RLE) Bathing Restrictions: Shower FOLLOW UP/APPOINTMENTS Follow-up Plan 1 week with MICHELLE Stafford MD Dec 02, 2016 12:32
[2016-12-02] MEDS ORDERED: ASC500 GTB (12:34)
[2016-12-02] MEDS ORDERED: GABA100C14 PO (12:34)
[2016-12-02] MEDS ORDERED: ASPI325T32 PO (12:35)
--- NOTE | 2016-12-02 12:37 | DS ---
Date/Time of Note Date/Time of Note DATE: 12/02/16 TIME: 12:35 Discharge Summary Admission/Discharge Info Admit Date/Time Nov 29, 2016 at 05:53 Discharge Date/Time 12/02/16 Discharge Diagnosis: right ankle arthritis Patient Condition: Good Consults Medicine Procedures Right total ankle replacement Hospital Course Patient was admitted s/p R TAA. Had some [place] and pain on POD#1 that resolved. Patient rle shows splint intact. toes wiggle, silt to the exposed toes dorsally and plantarlly. CR brisk, toes wwp Home Meds Active Scripts Aspirin* (Aspirin* EC) 325 Mg Tab, 325 MG PO DAILY for 30 Days, #30 TAB Prov:MICHELLE MARTIN MD 12/02/16 Gabapentin* (Gabapentin*) 100 Mg Capsule, 100 MG PO TID for 30 Days, #90 CAP Prov:MICHELLE MARTIN MD 12/02/16 Ascorbic Acid (Vitamin C) 500 Mg Tab, 1000 MG GTB DAILY for 30 Days, #30 TAB 8 Refills Prov:MICHELLE MARTIN MD 12/02/16 Ondansetron Hcl* (Zofran* ODT) 4 mg -ODT Tab.disper, 4 MG PO Q6 Y for NAUSEA AND /OR VOMITING, #10 TAB Prov:RYAN TRACY MD 04/08/15 Reported Medications Amphet Pmo-Qbtldb-W-Amphet (Adderall) 5 Mg Tablet, PO DAILY, TAB 04/08/15 Lamotrigine* (Lamictal*) 100 Mg Tablet, 100 MG PO DAILY, TAB 04/08/15 Zolpidem Tartrate* (Ambien*) 5 Mg Tablet, 5 MG PO HS Y for INSOMNIA, TAB 04/08/15 Bupropion Hcl* (Wellbutrin SR*) 150 Mg Tablet.sa, 150 MG PO DAILY, TAB.SA 04/08/15 Duloxetine Hcl* (Cymbalta*) 30 Mg Capsule.dr, 60 MG DAILY 02/27/11 Primary Care Provider [place] Time spent on discharge: > 30 minutes Pending Labs Laboratory Tests Test 12/02/16 05:10 White Blood Count 7.710^3/ul (4.8-10.8) Red Blood Count 4.0510^6/ul (4.20-5.40) Hemoglobin 13.1g/dl (12.0-16.0) Hematocrit 39.8% (37.0-47.0) Mean Corpuscular Volume 98.3fl (82.0-101.0) Mean Corpuscular Hemoglobin 32.3pg (29.0-33.0) Mean Corpuscular Hemoglobin Concent 32.9g/dl (32.0-37.0) Red Cell Distribution Width 12.6% (11.5-14.5) Platelet Count 02029^3/UL (140-415) Mean Platelet Volume 10.5fl (7.4-10.4) Neutrophils % 60.8% (39.0-77.0) Lymphocytes % 19.7% (15.0-51.0) Monocytes % 10.3% (0.0-11.0) Eosinophils % 8.4% (0.0-7.0) Basophils % 0.4% (0.0-2.0) Nucleated Red Blood Cells % 0.0/100WBC (0.0-0.0) Neutrophils # 4.710^3/ul (1.6-7.5) Lymphocytes # 1.510^3/ul (0.8-2.9) Monocytes # 0.810^3/ul (0.3-0.9) Eosinophils # 0.710^3/ul (0.0-0.5) Basophils # 0.010^3/ul (0.0-0.1) Nucleated Red Blood Cells # 0.010^3/ul (0.0-0.0) Sodium Level 137mmol/L (135-144) Potassium Level 3.4mmol/L (3.5-5.1) Chloride Level 100mmol/L (97-110) Carbon Dioxide Level 32mmol/L (21-31) Anion Gap 8 (8-16) Blood Urea Nitrogen 12mg/dl (7-20) Creatinine 0.60mg/dl (0.44-1.00) Glucose Level 102mg/dl (70-220) Calcium Level 9.2mg/dl (8.4-10.2) Phosphorus Level 2.9mg/dl (2.5-4.9) Magnesium Level 1.9mg/dl (1.7-2.5) MICHELLE MARTIN MD Dec 02, 2016 12:37
== END 2016-12-02 15:35 | DRG 470 ==
LOC: REC 05:53 → MS1 20:40
PROVIDERS: ADMIT Orthopaedic Surgery; ATTEND Orthopaedic Surgery
PROC: 0SRF0JA Replacement of Right Ankle Joint with Synthetic Substitute, Uncemented, Open Approach (ICD-10-PCS; principal; 2016-11-29 07:30)
DX: M19.071 Primary osteoarthritis, right ankle and foot (principal); F32.9 Major depressive disorder, single episode, unspecified
CPT/HCPCS: 80048; 80053; 82306; 83735; 84100; 85025; 97162; 97530; 97542; J0360; J0690; J1170; J2250; J2405; J2710; J2795; J3010; J7999